=== PATIENT | male | born 2000 | race African-American/Black ===

== ENCOUNTER 2024-01-07 17:12 | Emergency (ER) | payer MEDICAID ==
[~2024-01-07] VITALS: Ht 170.2 cm; Wt 63.0 kg
[2024-01-07 17:21] VITALS: O2SAT 100
[2024-01-07 19:23] LABS: BASOPHILS % 0.6 % (0.0-2.0); EOSINOPHILS % 1.9 % (0.0-5.0); HEMATOCRIT. 44.2 % (42.0-52.0); HEMOGLOBIN. 14.9 g/dL (14.0-18.0); MEAN CORPUSCULAR HEMOGLOBIN 31.9 pg (28.0-32.0); MEAN CORPUSCULAR HGB CONC 33.6 g/dL (31.0-37.0); MEAN PLATELET VOLUME 8.8 fl (7.4-10.4); MONOCYTES % 11.9 % (2.0-8.0); NEUTROPHILS % 69.6 % (40.0-76.0); PLATELET 194 x1000/uL (130-400); RED BLOOD CELL COUNT 4.66 mill/uL (4.7-6.1); WHITE BLOOD COUNT 7.6 x1000/uL (4.5-11.0)
[2024-01-07 19:35] LABS: D-DIMER < 0.19 mg/L FEU (<0.50); INR 0.9; PARTIAL THROMBOPLASTIN TIME 28.9 sec (23.4-31.0); PROTHROMBIN TIME 10.5 sec (9.6-11.0)
[2024-01-07 19:39] LABS: CARBON DIOXIDE 28 mEq/L (21-32); CHLORIDE 105 mEq/L (98-107); POTASSIUM 3.9 mEq/L (3.5-5.1); SODIUM 137 mEq/L (136-145)
[2024-01-07 19:40] LABS: CALCIUM 9.5 mg/dL (8.7-10.4)
[2024-01-07 19:43] LABS: TROPONIN I HIGH SENSITIVITY < 4 ng/L (3.0-53)
[2024-01-07 19:44] LABS: CREATININE 0.9 mg/dL (0.6-1.3)
[2024-01-07 19:45] LABS: GLUCOSE 86 mg/dL (70-105); UREA NITROGEN BLOOD 11 mg/dL (9-23)
[2024-01-07 19:46] LABS: ALANINE AMINOTRANSFERASE 20 IU/L (10-49); ALBUMIN 4.6 g/dL (3.2-4.8); ASPARTATE AMINOTRANSFERASE 20 IU/L (<34)
[2024-01-07 19:47] LABS: BILIRUBIN TOTAL 0.7 mg/dL (0.1-1.0); PROTEIN TOTAL 7.2 g/dL (6.0-8.3)
[2024-01-07] MEDS: IBUPROFEN 400MG TABLET PO ONE (19:50)
[2024-01-07] MEDS ORDERED: IBUP-2028 MT (21:01)
[2024-01-07 21:57] LABS: TROPONIN I HIGH SENSITIVITY < 4 ng/L (3.0-53)
[2024-01-07 22:37] VITALS: BP 104/72; PULSE 60; RESP 18; TEMP 98.3; O2SAT 100
== END 2024-01-07 22:39 | disposition home or self-care (01) ==
LOC: ER 17:12
DX: R07.9 Chest pain, unspecified (principal)
CPT/HCPCS: 36415; 71045; 80053; 84484; 85025; 85379; 93005; 99285